=== PATIENT | male | born 1985 | race Caucasian/White ===

== ENCOUNTER 2021-08-05 19:03 | Emergency (ER) | payer OTHER, SELFPAY ==
--- NOTE | ~2021-08-05 | CT_ITS ---
EXAMINATION: CT orbit BI wo con DATE: 08/05/2021 20:22 INDICATION: Trauma to the left orbit TECHNIQUE: Computed tomography (CT) of the orbits was performed without intravenous contrast. The dos e-length product was 148.49 mGy-cm. Automated exposure control and iterative reconstruction technique were employed. COMPARISON: None FINDINGS: The orbits are symmetric. No orbital fractures. Zygomatic arches are unremarkable. No signi ficant opacification of the paranasal sinuses. The lamina papyracea within normal limits bilaterally. IMPRESSION: 1. No acute abnormality of the orbits. Reviewed, dictated and finalized at location A.
[2021-08-05 19:07] VITALS: BP 100/64; PULSE 65; RESP 20; TEMP 36.6; O2SAT 97
[2021-08-05] MEDS: FLUORESCEIN SOD 1 MG/STRIP EACH EYE (20:35)
--- NOTE | 2021-08-05 21:19 | ED.EYEPROB ---
HPI - Eye Problem General Chief complaint: Eye Problems Stated complaint: eye injury Time Seen by Provider: 08/05/21 19:42 Source: patient History of Present Illness HPI Narrative: Patient presents with injury to the eye. Patient reports he was working with a wrench slipped and he struck himself on the eye. Reports he feels like he can hear a fluid moving when he closes his eyes. Reports pain around his eye denies any blurry vision or double vision reports initially he felt lightheaded after the injury but all the symptoms have now resolved. His pain again predominantly around his left achy constant, worse with palpation of the area, no radiation. He denies any foreign body sensation. Related Data Home Medications Medication Instructions Recorded Confirmed albuterol sulfate 90 mcg/actuation inh inhalation PRN 08/05/21 aerosol inhaler budesonide-formoterol HFA 160 inh inhalation BID 08/05/21 mcg-4.5 mcg/actuation aerosol inhaler (Symbicort) Allergies Allergy/AdvReac Type Severity Reaction Status Date / Time venom-honey bee Allergy Unknown Swelling Unverified 08/05/21 19:12 Review of Systems Review of Systems: CONSTITUTIONAL: Denies fever, chills, or sweats. EYES: Denies visual changes, redness, or discharge. ENT: Denies rhinorrhea, congestion, sore throat, or otalgia. CARDIOVASCULAR: Denies chest pain, palpitations, or edema. RESPIRATORY: Denies cough or dyspnea. GASTROINTESTINAL: Denies abdominal pain, nausea, vomiting, or diarrhea. GENITOURINARY: Denies dysuria or hematuria. SKIN: Denies rash or itching. MUSCULOSKELETAL: Denies back pain, joint pain, or myalgia. NEUROLOGIC: Denies headache, numbness, dizziness, or weakness. PSYCHIATRIC: Denies anxiety or depression. All systems reviewed & are unremarkable except as noted in HPI and below Exam Narrative: GENERAL: Well-appearing, well-nourished, and in no acute distress. HEAD: Normocephalic, atraumatic. EYES: PERRLA and EOMI. mild tenderness around the left orbit with mild edema no open or draining wounds. No fluorescein uptake in the left eye anterior chamber without hyphema or hypopyon ENT: Nares clear, no rhinorrhea or epistaxis. Mucous membranes moist. NECK: Supple. No masses. No JVD EXTREMITIES: Normal range of motion. No edema. SKIN: Warm, dry, no rash. NEURO: No focal deficits. Alert and oriented x3. PSYCH: Normal mood and affect. Course Reevaluation(s) Reevaluation #1: Patient resting comfortably results and plan reviewed with patient. Patient is comfortable with outpatient plan. Date: 08/05/21 Time: 21:21 Vital Signs Vital signs: Vital Signs Temperature 36.6 C 08/05/21 19:07 Pulse Rate 65 08/05/21 19:07 Respiratory Rate 20 08/05/21 19:07 Blood Pressure 100/64 08/05/21 19:07 Pulse Oximetry 97 08/05/21 19:07 Oxygen Delivery Room Air 08/05/21 19:07 Temperature 36.6 C 08/05/21 19:07 Pulse Rate 65 08/05/21 19:07 Respiratory Rate 20 08/05/21 19:07 Blood Pressure 100/64 08/05/21 19:07 Pulse Oximetry 97 08/05/21 19:07 Oxygen Delivery Room Air 08/05/21 19:07 MDM - Eye Problem MDM Narrative Medical decision making narrative: H&P as above, vss, pt looks clinically well, exam mild tenderness on the left orbit with edema, imaging without acute process, additional labs/img considered, symptomatic relief available as needed, on reevaluation pt continues to looks clinically well. Suspect soft tissue injury such as contusion around the orbit dns open globe, corneal abrasion or ulcer, orbital fracture, entrapment plan to tx/monitor as op w/ pcm f/u findings/plan discussed with pt, pt agree/comfortable with plan, return precautions given Discharge Plan Discharge Clinical Impression: Contusion Patient Disposition: Home, Self-Care Condition: Improved Instructions: Antibiotic Form Additional Instructions: Please return if your symptoms worsen or fail to improve. If you develop a fever, ca
== END 2021-08-05 21:32 | disposition home or self-care (01) ==
PROVIDERS: Emergency Provider Emergency Medicine; PCP Family Medicine
DX: S05.12XA Contusion of eyeball and orbital tissues, left eye, initial encounter (principal); W22.8XXA Striking against or struck by other objects, initial encounter
CPT/HCPCS: 70480; 99284

== ENCOUNTER 2025-01-10 09:59 | Emergency (ER) | payer BC, SELFPAY ==
--- NOTE | ~2025-01-10 | CT_ITS ---
PROCEDURE: [Procedure] INDICATION: Right flank pain COMPARISON(S): July 09, 2014 TECHNIQUE: Multiplanar images of the abdomen and pelvis were obtained [without IV or oral contrast.] Diagnostic sensitivity is limited due to lack of oral contrast. Dose lowering technique and dose optimization was utilized. FINDINGS: The exam is suboptimal because of the lack of IV contrast. Inferior thorax: No significant abnormality is seen. Liver: Normal. Gallbladder: The gallbladder is present. There are no radiopaque gallstones. Pancreas: Within normal limits. Spleen: Normal in size and appearance. Adrenal glands: There are no masses seen. Kidneys: There is no hydronephrosis seen on either side. No urinary tract stones are seen. There are no suspicious masses seen. GI tract: There is no evidence of bowel obstruction. Major vessels: The major vessels are normal in caliber. Sex specific pelvic organs: No significant abnormality is seen. Bladder: The bladder papers normal. Bones: Within normal limits for the patient's age. IMPRESSION: No significant abnormality is seen. Reviewed, dictated and finalized at location A. [facility]
[2025-01-10 10:02] VITALS: BP 125/83; PULSE 90; RESP 17; TEMP 36.6; O2SAT 100
--- OUTSIDE RECORDS SUMMARY | 2025-01-10 10:53 | XMS_ITS | Clinical Summary ---
Author Organization [facility] Care Team Providers Care Sample Preparation Supervisor Name Role Phone Unavailable Primary Care Provider Unavailabl e Social History Tobacco Use Types Packs/Day Years Used Date Smoking Tobacco: Never Assessed Sex and Gender Information Value Date Recorded Sex Assigned at Not on file Legal Sex Male 1:34 PM CDT Gender Identity Not on file Sexual Orientation Not on file Plan of Treatment Health Maintenance Due Date Last Done Comments Hepatitis C Virus (HCV) Screening 1985 Hepatitis B Immunization (1 of 3 - 19+ 3-dose series) 2004 Human Papillomavirus (HPV) Immunization (1 - 3-dose SCDM series) 2012 Influenza Immunization (#1) 2024 SARS-COV-2 Immunization ( season) 2024 Respiratory Syncytial Virus (RSV) Immunization (Adult) (1 - 1-dose 75+ series) 2060 DTaP/Tdap/Td Immunization Discontinued 11/18/2015 TdaP Immunization Completed 11/18/2015 Meningococcal Immunization (ACWY) Aged Out No longer eligible based on patient's age to complete this topic Pneumococcal Immunization Combined Aged Out No longer eligible based on patient's age to complete this topic Rotavirus Immunization Aged Out No lo nger eligible based on patient's age to complete this topic
[2025-01-10 11:09] LABS: Add Urine Microscopic? NO; Appearance Urine Clear (Clear); Glucose Urine UA Negative (Negative); Leukocyte Esterase Ur Negative LEU/UL (Negative); Nitrate Urine Negative (Negative); Specific Grav Ur 1.006 (1.001-1.035)
[2025-01-10 11:24] LABS: Hematocrit 43.0 % (42.0-52.0); Hemoglobin 14.6 g/dL (14.0-18.0); Immature Granulocyte Percent A 0.2 % (0-0.5); Lymphocytes Absolute Auto 2.15 K/mm3 (0.9-3.2); Mean Corpuscular HGB Conc 34.0 g/dl (32-36); Mean Corpuscular Hemoglobin 29.7 pg (26-34); Mean Corpuscular Volume 87.4 fl (80-100); Nucleated Red Blood Cells Absolute Auto 0.000 K/mm3 (0.0-0.012); Nucleated Red Blood Cells Perc 0.0 % (0.0-0.2); Platelet Count Result 344 k/mm3 (150-375); Red Blood Count 4.92 M/mm3 (4.6-6.20); White Blood Count 6.2 K/mm3 (4.5-10.0)
[2025-01-10 11:35] LABS: Alanine Aminotransferase 23 U/L (6-50); Albumin Level 4.8 g/dL (3.5-5.1); Alkaline Phosphatase 46 U/L (38-126); Anion Gap 6 mmol/L (4-12); Aspartate Amino Transferase 33 U/L (17-59); Bilirubin,Total 0.7 mg/dL (0.2-1.3); Blood Urea Nitrogen 19 mg/dL (9-20); Calcium 9.3 mg/dL (8.4-10.2); Carbon Dioxide 29 mmol/L (22-30); Chloride 101 mmol/L (98-107); Estimated CRCL calculation 95 ml/min; Estimated Glomerular Filt Rate > 60; Glucose 102 mg/dL (65-110); Potassium 4.2 mmol/L (3.4-5.0); Sodium 136 mmol/L (137-145); Total Protein 8.1 g/dL (6.3-8.2)
[2025-01-10 12:58] VITALS: BP 132/84; PULSE 70; RESP 16; O2SAT 99
--- OUTSIDE RECORDS SUMMARY | 2025-01-10 13:04 | XMS_ITS | Clinical Summary ---
Author Organization [facility] Care Team Providers Care Medical Coding Technician Name Role Phone Unavailable Primary Care Provider [...]
--- NOTE | 2025-01-10 13:45 | ED_ITS ---
HPI - Back Pain/Injury General Chief Complaint: Urogenital-Male Stated Complaint: right sided flank pain Time Seen by Provider: 01/10/25 11:16 History of Present Illness HPI Narrative: Patient presenting with right flank pain, does not report any recent injuries, no hematuria or dysuria, no history of kidney stones Related Data Home Medications ?Medication ?Instructions ?Recorded ?Confirmed ?Last Taken ?Type albuterol sulfate 90 mcg/actuation inh inhalation PRN 08/05/21 08/05/21 History aerosol inhaler budesonide-formoterol HFA 160 inh inhalation BID 08/0508/05/21 History mcg-4.5 mcg/actuation aerosol inhaler (Symbicort) Allergies Allergy/AdvReac Type Severity Reaction Status Date / Time venom-honey bee Allergy Unknown Swelling Verified 01/10/25 10:01 Review of Systems 2 Review of Systems: All systems reviewed & are unremarkable except as noted in HPI and below Exam 2 Narrative: EXAMINATION OF ORGAN SYSTEMS/BODY AREAS: Constitutional: Vital signs per nursing GENERAL:[No acute distress, non-toxic appearing.] HEAD: Normal with no signs of head trauma. EYES: EOMI, conjunctiva normal ENT: Hearing grossly intact LUNGS: Nonlabored breathing. HEART: [Regular rate and rhythm] ABD: [Soft], [nontender to palpation], no significant CVA tenderness EXT: Normal range of motion SKIN: [No rashes or lesions.] NEURO: [Alert and oriented x 3. No gross focal sensory or strength deficits.] PSYCH: Normal affect Course Vital Signs Vital signs: Vital Signs Temperature 97.9 F 01/10/25 10:02 Pulse Rate 90 01/10/25 10:02 Respiratory Rate 17 01/10/25 10:02 Blood Pressure 125/83 01/10/25 10:02 Pulse Oximetry 100 01/10/25 10:02 Oxygen Delivery Room Air 01/10/25 10:02 Temperature 97.9 F 01/10/25 10:02 Pulse Rate 70 01/10/25 12:58 Respiratory Rate 16 01/10/25 12:58 Blood Pressure 132/84 01/10/25 12:58 Pulse Oximetry 99 01/10/25 12:58 Oxygen Delivery Room Air 01/10/25 10:02 MDM - Back Pain/Injury MDM Narrative Medical decision making narrative: Patient presenting with right flank pain, he is concerned maybe his kidneys. Labs within acceptable limits, urine is normal, CT abdomen/pelvis does not show any obvious kidney stone or abnormality. He is very well-appearing I do feel he is stable for discharge with follow-up to his PCP with return precautions Lab Data 01/10/25 11:17 01/10/25 11:17 Labs: Lab Results 01/10/25 01/10/25 Range/Units 11:02 11:17 WBC 6.2 (4.5-10.0) K/mm3 RBC 4.92 (4.6-6.20) M/mm3 Hgb 14.6 (14.0-18.0) g/dL Hct 43.0 (42.0-52.0) % MCV 87.4 (80-100) fl MCH 29.7 (26-34) pg MCHC 34.0 (32-36) g/dl RDW 11.7 (11.5-14.5) % Plt Count 344 (150-375) k/mm3 MPV 8.9 (7.4-10.4) fl Immature Gran % (Auto) 0.2 (0-0.5) % Neut % (Auto) 54.1 (45.5-73.1) % Lymph % (Auto) 34.8 (18.3-44.2) % [place] % (Auto) 7.1 (2.6-8.5) % Eos % (Auto) 2.8 (0-4.4) % Baso % (Auto) 1.0 (0.2-1.2) % Lymph # (Auto) 2.15 (0.9-3.2) K/mm3 [place] # (Auto) 0.4 (0.1-0.6) K/mm3 Eos # (Auto) 0.2 (0-0.3) K/mm3 Baso # (Auto) 0.1 (0.0-0.1) K/mm3 Abs Immat Gran (auto) 0.01 (0.00-0.031) K/mm3 Absolute Neuts (auto) 3.3 (1.3-6.7) K/mm3 Absolute Nucleated RBC 0.000 (0.0-0.012) K/mm3 Nucleated RBC % 0.0 (0.0-0.2) % Sodium 136 L (137-145) mmol/L Potassium 4.2 (3.4-5.0) mmol/L Chloride 101 (98-107) mmol/L Carbon Dioxide 29 (22-30) mmol/L Anion Gap 6 (4-12) mmol/L BUN 19 (9-20) mg/dL Creatinine 0.81 (0.7-1.3) mg/dL Estim Creat Clear Calc 95 ml/min Estimated GFR > 60 (59 - ) Glucose 102 (65-110) mg/dL Calcium 9.3 (8.4-10.2) mg/dL Total Bilirubin 0.7 (0.2-1.3) mg/dL AST 33 (17-59) U/L ALT 23 (6-50) U/L Alkaline Phosphatase 46 (38-126) U/L Total Protein 8.1 (6.3-8.2) g/dL Albumin 4.8 (3.5-5.1) g/dL Urine Color Yellow (Yellow) Urine Appearance Clear (Clear) Urine pH 7.0 (5.0-9.0) Ur Specific [place] 1.006 (1.001-1.035) Urine Protein Negative (Negative) mg/dL Urine Glucose (UA) Negative (Negative) mg/dL Urine Ketones Negative (Negative) mg/dL Ur Blood (Man) Negative (Negative) Urine Nitrate Negative (Negative) Urine Bilirubin Negative (Negative) Urine Urobilinogen 0.2 (<2.0) mg/dL Leukocyte Esterase Rfl Negative (Negative) LISA/UL Discharge Plan Discharge Clinical Impression: Flank pain Patient Disposition: Home Condition: Stable Instructions: Flank Pain (ED) Additional Instructions: Thankfully your CT today did not show any abnormality, your urine looks normal and so do your labs including your kidney labs. You can always return to the emergency room for any further issues. Patient Language: French Prescriptions: No Action albuterol sulfate 90 mcg/actuation HFA aerosol inhaler INHALATION PRN budesonide-formoterol [Symbicort] 160-4.5 mcg/actuation HFA aerosol inhaler INHALATION BID Follow-up/Referrals: PHYSICIAN NOT ON STAFF,NONSTAFF [Primary Care Provider] Carlton Neal MD [Physician, Family Practice] - 2 Days
== END 2025-01-10 12:59 | disposition home or self-care (01) ==
PROVIDERS: Emergency Provider Emergency Medicine
DX: R10.A1 Flank pain, right side (principal)
CPT/HCPCS: 36415; 74176; 80053; 81003; 85025; 99284